=== PATIENT | female | born 1945 | race Two or more races ===

== ENCOUNTER 2023-01-30 00:05 | Emergency (ER) | payer OTHER ==
[~2023-01-30] VITALS: Ht 162.6 cm; Wt 63.5 kg
[2023-01-30] MEDS ORDERED: CEPHALEXIN500 MG PO (04:36)
[2023-01-30] MEDS ORDERED: TRAMADOL HCL50 MG PO (04:36)
== END 2023-01-30 05:55 ==
LOC: ER 00:05
DX: S01.82XA Laceration with foreign body of other part of head, initial encounter (principal); W10.0XXA Fall (on)(from) escalator, initial encounter; Y93.89 Activity, other specified; Y92.018 Other place in single-family (private) house as the place of occurrence of the external cause; S52.612A Displaced fracture of left ulna styloid process, initial encounter for closed fracture; S52.592A Other fractures of lower end of left radius, initial encounter for closed fracture

== ENCOUNTER 2023-02-01 11:53 | Emergency (ER) | payer OTHER ==
[~2023-02-01] VITALS: Ht 162.6 cm; Wt 54.4 kg
[~2023-02-01 11:53] MED LIST: CEPHALEXIN500 MG PO; TRAMADOL HCL50 MG PO
[2023-02-01] MEDS ORDERED: OMEPRAZOLE20 M1 PO (12:46)
== END 2023-02-01 15:48 | disposition home or self-care (01) ==
LOC: ER 11:53
DX: S52.92XA Unspecified fracture of left forearm, initial encounter for closed fracture (principal); X58.XXXA Exposure to other specified factors, initial encounter; Y93.9 Activity, unspecified; Y92.9 Unspecified place or not applicable; S52.292A Other fracture of shaft of left ulna, initial encounter for closed fracture